=== PATIENT | female | born 1955 | race Caucasian/White ===

== ENCOUNTER 2024-12-18 15:51 | Observation (INO) | payer MEDICARE, OTHER ==
[~2024-12-18] VITALS: Ht 167.6 cm; Wt 95.0 kg
[2024-12-18] MEDS ORDERED: ELIQ5TAB PO (16:33)
[2024-12-18 18:49] LABS: BASO # 0.0 10^3/uL (0.0-0.2); BASO % 0.3 % (0.0-1.0); EOS # 0.0 10^3/uL (0.0-0.5); EOS % 0.1 % (0.0-3.0); LYMPH # 1.2 10^3/uL (1.5-5.0); LYMPH % 11.8 % (24.0-44.0); MONO # 0.6 10^3/uL (0.0-0.8); MONO % 6.0 % (2.0-8.0); NEUTROPHILS # 8.2 10^3/uL (1.5-8.5); NEUTROPHILS % 81.6 % (36.0-66.0); PLATELET COUNT, AUTOMATED 237 10^3/uL (150-450)
[2024-12-18] MEDS: ACETAMINOPHEN *IV* 1,000 MG in IV 1 EA IV ONE (18:59)
[2024-12-18 19:12] LABS: INR 1.43
[2024-12-18 20:08] LABS: CALCIUM LEVEL 8.8 MG/DL (8.3-10.6); CARBON DIOXIDE LEVEL 26 MMOL/L (20-31); CHLORIDE LEVEL 103 MMOL/L (98-107); CREATININE FOR GFR 1.09 MG/DL (0.55-1.30); GLOMERULAR FILTRATION RATE 54.7 (>39); MAGNESIUM LEVEL 1.9 MG/DL (1.8-2.4); POTASSIUM SERUM 4.4 MMOL/L (3.5-5.1); SODIUM LEVEL 141 MMOL/L (136-145)
[2024-12-18 20:26] LABS: CPK CREATINE PHOSPHOKINASE 102 U/L (34-145)
[2024-12-18] MEDS: PANTOPRAZOLE 40MG VIAL IV ONE (21:01)
[2024-12-18] MEDS ORDERED: ISOVUE-370 76% 100 ML VIAL As Ordered ONE (23:03)
[2024-12-19] MEDS ORDERED: HOME MED LIST COMPLETE! XX SCH (01:20)
[2024-12-19] MEDS ORDERED: CALC-190 PO (01:20)
[2024-12-19] MEDS ORDERED: TIRZ5PEN3 SQ (01:20)
[2024-12-19] MEDS ORDERED: B-12100010 PO (01:20)
[2024-12-19] MEDS ORDERED: ICY1CRE TOP (01:20)
[2024-12-19] MEDS ORDERED: PRAV20TA78 PO (01:20)
[2024-12-19] MEDS ORDERED: CELE0.09 PO (01:20)
[2024-12-19] MEDS ORDERED: SOLI10TA PO (01:20)
[2024-12-19] MEDS ORDERED: LISI20TA33 PO (01:20)
[2024-12-19] MEDS: GABAPENTIN 300 MG CAP PO SCH (01:55)
[2024-12-19] MEDS: LR 1,000 ML IV SCH (01:55)
[2024-12-19 02:03] LABS: ALT/SGPT 25 U/L (7.0-40); AST/SGOT 25 U/L (<34)
[2024-12-19] MEDS ORDERED: IBUPROFEN 600 MG TAB PO PRN (04:35)
[2024-12-19 06:17] LABS: PLATELET COUNT, AUTOMATED 236 10^3/uL (150-450)
[2024-12-19] MEDS: ACETAMINOPHEN 500 MG TAB PO SCH ×2 (06:20→15:30)
[2024-12-19 07:22] LABS: CALCIUM LEVEL 9.2 MG/DL (8.3-10.6); CARBON DIOXIDE LEVEL 27.0 MMOL/L (20-31); CHLORIDE LEVEL 102.0 MMOL/L (98-107); CREATININE FOR GFR 1.11 MG/DL (0.55-1.30); GLOMERULAR FILTRATION RATE 53.5 (>39); POTASSIUM SERUM 5.7 MMOL/L (3.5-5.1); SODIUM LEVEL 141.0 MMOL/L (136-145)
[2024-12-19] MEDS: CYANOCOBALAMIN 500 MCG TAB PO SCH (09:51)
[2024-12-19] MEDS: PATIROMER SORBITEX CALCIUM 8.4GM POWDER PACKET PO ONE (09:51)
[2024-12-19] MEDS: PRAVASTATIN 20 MG TAB PO SCH (09:51)
[2024-12-19] MEDS: PANTOPRAZOLE 40MG TAB PO SCH (09:51)
[2024-12-19] MEDS: APIXABAN 5 MG TAB PO SCH (09:51)
[2024-12-19 14:06] LABS: CALCIUM LEVEL 8.6 MG/DL (8.3-10.6); CARBON DIOXIDE LEVEL 24.0 MMOL/L (20-31); CHLORIDE LEVEL 103.0 MMOL/L (98-107); CREATININE FOR GFR 1.0 MG/DL (0.55-1.30); GLOMERULAR FILTRATION RATE 60.6 (>39); POTASSIUM SERUM 4.3 MMOL/L (3.5-5.1); SODIUM LEVEL 139.0 MMOL/L (136-145)
[2024-12-19 14:45] LABS: CPK CREATINE PHOSPHOKINASE 86.0 U/L (34-145)
[2024-12-19] MEDS ORDERED: PILL CUTTER 1 EACH XX ONE (15:26)
[2024-12-19] MEDS: predniSONE 20 MG TAB PO SCH (15:30)
[2024-12-19] MEDS: CYCLOBENZAPRINE 10 MG TABLET PO PRN (21:11)
[2024-12-19 21:44] VITALS: BP 152/70; TEMP 97.8; O2SAT 90
[2024-12-20] MEDS: KETOROLAC 30 MG/ML 1 ML VIAL IV ONE (02:21)
[2024-12-20 03:47] VITALS: BP 152/71; TEMP 97.8; O2SAT 95
[2024-12-20 05:14] LABS: PLATELET COUNT, AUTOMATED 233 10^3/uL (150-450)
[2024-12-20 05:35] LABS: CALCIUM LEVEL 8.6 MG/DL (8.3-10.6); CARBON DIOXIDE LEVEL 24.0 MMOL/L (20-31); CHLORIDE LEVEL 104.0 MMOL/L (98-107); CREATININE FOR GFR 1.3 MG/DL (0.55-1.30); GLOMERULAR FILTRATION RATE 44.2 (>39); POTASSIUM SERUM 5.1 MMOL/L (3.5-5.1); SODIUM LEVEL 140.0 MMOL/L (136-145)
[2024-12-20 07:44] VITALS: BP 140/65; TEMP 97.9; O2SAT 93
[2024-12-20] MEDS: GABAPENTIN 300 MG CAP PO SCH (08:51)
[2024-12-20] MEDS: NS (Normal Saline) 0.9% 1,000 ML IV SCH (08:52)
[2024-12-20] MEDS: ACETAMINOPHEN 325 MG TAB PO SCH (08:57)
[2024-12-20] MEDS: SOLIFENACIN 5 MG TAB PO SCH (10:14)
[2024-12-20] MEDS ORDERED: PROHANCE 279.3MG/ML 15ML VIAL As Ordered ONE (10:30)
[2024-12-20] MEDS ORDERED: PROHANCE 279.3MG/ML 5ML VIAL As Ordered ONE (10:30)
[2024-12-20 11:59] VITALS: BP 146/70; TEMP 97.8; O2SAT 95
[2024-12-20] MEDS: MORPHINE 2 MG/ML 1 ML VIAL IV STA (12:25)
[2024-12-20 16:26] VITALS: BP 147/67; TEMP 97.8; O2SAT 94
[2024-12-20 19:28] VITALS: BP 166/77; TEMP 97.7; O2SAT 92
[2024-12-20 23:31] VITALS: BP 141/74; TEMP 97.3; O2SAT 92
[2024-12-21 03:48] VITALS: BP 145/70; TEMP 97.2; O2SAT 95
[2024-12-21 05:43] LABS: PLATELET COUNT, AUTOMATED 222 10^3/uL (150-450)
[2024-12-21 06:03] LABS: CALCIUM LEVEL 8.0 MG/DL (8.3-10.6); CARBON DIOXIDE LEVEL 24.0 MMOL/L (20-31); CHLORIDE LEVEL 107.0 MMOL/L (98-107); CREATININE FOR GFR 1.01 MG/DL (0.55-1.30); GLOMERULAR FILTRATION RATE 59.9 (>39); POTASSIUM SERUM 4.7 MMOL/L (3.5-5.1); SODIUM LEVEL 142.0 MMOL/L (136-145)
[2024-12-21 16:27] VITALS: BP 162/80; TEMP 97.5; O2SAT 93
[2024-12-21 20:24] VITALS: BP 170/92; TEMP 97.5; O2SAT 93
[2024-12-21 22:25] VITALS: BP 162/77
[2024-12-22 04:27] VITALS: BP 176/94; TEMP 98.1; O2SAT 92
[2024-12-22 05:31] LABS: PLATELET COUNT, AUTOMATED 230 10^3/uL (150-450)
[2024-12-22 05:45] LABS: CALCIUM LEVEL 7.5 MG/DL (8.3-10.6); CARBON DIOXIDE LEVEL 23.0 MMOL/L (20-31); CHLORIDE LEVEL 109.0 MMOL/L (98-107); CREATININE FOR GFR 0.9 MG/DL (0.55-1.30); GLOMERULAR FILTRATION RATE 68.8 (>39); POTASSIUM SERUM 4.6 MMOL/L (3.5-5.1); SODIUM LEVEL 143.0 MMOL/L (136-145)
[2024-12-22 07:39] VITALS: BP 148/70; TEMP 97; O2SAT 96
[2024-12-22 08:48] VITALS: BP 148/70
[2024-12-22] MEDS: ANALGESIC BALM CRM 3 OZ TOP SCH (14:02)
[2024-12-22] MEDS ORDERED: PRED10TA2 PO (14:33)
[2024-12-22] MEDS ORDERED: ICY1CRE TOP (14:33)
[2024-12-22] MEDS ORDERED: GABA-1172 PO (14:33)
[2024-12-22] MEDS ORDERED: CYCL5TAB4 PO (14:33)
== END 2024-12-22 16:50 | disposition home or self-care (01) ==
LOC: M ED 15:51 → M ED INP 12-19 13:52 → M PCU 12-19 21:51
PROVIDERS: ADMIT Internal Medicine; ATTEND Internal Medicine
DX: G57.12 Meralgia paresthetica, left lower limb (principal); M48.061 Spinal stenosis, lumbar region without neurogenic claudication; I48.91 Unspecified atrial fibrillation; I10 Essential (primary) hypertension; E78.5 Hyperlipidemia, unspecified; E66.9 Obesity, unspecified; Z79.01 Long term (current) use of anticoagulants; Z79.899 Other long term (current) drug therapy; Z79.52 Long term (current) use of systemic steroids
CPT/HCPCS: 36415; 72131; 72197; 73701; 80048; 80076; 82550; 83735; 85025; 85027; 85610; 85730; 93971; 96361; 96372; 96374; 96375; 97110; 97116; 97161; 97530; 99284; A9576; G0378; J0131; J1885; J2470; J2919; J3010; J3360; J7512; Q9967